=== PATIENT | female | born 1960 | race Caucasian/White ===

== ENCOUNTER 2025-07-11 14:55 | Emergency (ER) | payer MEDICARE, OTHER ==
[~2025-07-11] VITALS: Ht 167.6 cm; Wt 87.1 kg
[2025-07-11] MEDS ORDERED: TRANEXAMIC ACID 1,000 MG/10 ML VIAL ONE (15:16)
[2025-07-11] MEDS ORDERED: OXYMETAZOLINE HCL NASAL SPRAY 30 ML BOTTLE NS ONE (15:23)
[2025-07-11] MEDS: OXYMETAZOLINE HCL NASAL SPRAY 30 ML BOTTLE NS ONE (15:27)
[2025-07-11] MEDS: TRANEXAMIC ACID 1,000 MG/10 ML VIAL IR ONE (15:27)
[2025-07-11 16:16] VITALS: BP 190/95; TEMP 98.7; O2SAT 100
== END 2025-07-11 16:16 | disposition home or self-care (01) ==
LOC: ER 15:03
DX: R04.0 Epistaxis (principal); Z60.2 Problems related to living alone